=== PATIENT | male | born 1955 | race Caucasian/White ===

== ENCOUNTER → 2017-05-14 | Day surgery (SDC) | payer BC, OTHER ==
[2017-05-13 15:24] VITALS: BP 145/85
--- NOTE | 2017-05-13 15:45 | PCM.EKG ---
[facility] Test Date: 2017-05-13 Test Time: 15:39:20 Pat Name: KACEY PARRISH Department: Room: Gender: M Paint Prepper: AWCHAMP : 1955 Requested By: GORDON MONTES Order Number: [id number] Reading MD: Juan Diego Man Measurements Intervals [place] Rate: 81 P: 73 TN: 170 QRS: 51 QRSD: 86 T: 62 QT: 392 QTc: 455 Interpretive Statements Normal sinus rhythm Normal ECG No previous ECG available for comparison NONSPECIFIC T ABNORMALITIES, DIFFUSE LEADS Electronically Signed On 05-17-2017 10:38:01 [employer] by Juan Diego Man Please click the below link to view image of tracing.
[2017-05-13 16:21] LABS: BASOPHIL # 0.1 10^3/uL (0.0-0.1); BASOPHIL % 0.8 % (0.0-0.2); EOSINOPHIL # 0.2 10^3/uL (0.0-0.2); EOSINOPHIL % 2.7 % (0.0-5.0); HEMOGLOBIN 12.3 g/dL (13.9-16.3); LYMPHOCYTES # 1.6 10^3/uL (1.0-4.8); LYMPHOCYTES % 20.6 % (24.0-44.0); MEAN CELL HGB 24.6 pg (26-34); MEAN CELL HGB CONCENTRATION 31.2 g/dL (33-37); MEAN CORP VOLUME 78.8 fL (78-100); MEAN PLATELET VOLUME 10.3 fL (7.8-11.0); MONOCYTES # 0.7 10^3/uL (0.3-0.8); MONOCYTES % 9.6 % (5.0-12.0); NEUTROPHILS % 65.5 % (41.0-85.0); WHITE BLOOD CELL 7.7 10^3/uL (4.5-11.0)
[2017-05-13 16:40] LABS: CALCIUM 8.8 mg/dL (8.4-10.5); CARBON DIOXIDE 29.8 mmol/L (20.0-32)
[~2017-05-14] VITALS: Ht 193 cm; Wt 101.2 kg
[2017-05-14] VITALS (15 sets, daily range): BP systolic 113–157; BP diastolic 68–98
[~2017-05-14] MED LIST: ACET-687 PO; ANCEF 2 GM in NS 100ML 100 ML IV SCH; ANCEF ONE; ASPI81TA52 PO; CEPH-350 PO; DECADRON ONE; DILAUDID IV PRN; DILAUDID ONE; DIPRIVAN IV ONE; LACTATED RINGERS 1,000 ML IV SCH; LACTATED RINGERS 1,000 ML ONE; LIDOCAINE 2% VIAL ONE; LOSA1TAB25 PO; NAROPIN 0.2% 40 MG/20 ML VIAL ONE; NEOSTIGMINE ONE; NS 1000ML 1,000 ML ONE; NS 100ML 100 ML IV ONE; NS 3000ML IRR IR ONE; PHENERGAN IV PRN; POTA10TA10 PO; QUELICIN ONE; SODIUM CHLORIDE IR ONE; SUBLIMAZE IV PRN; SUBLIMAZE ONE; TORADOL ONE; VERSED ONE; XYLOCAINE 2%-EPI 1:100,000 ONE; ZEMURON IV ONE; ZOFRAN ONE
[2017-05-14] MEDS: NS 1000ML 1,000 ML IV SCH ×2 (08:15→10:57)
--- NOTE | 2017-05-14 12:56 | OPH ---
DATE OF SURGERY: 05/14/2017 PREOPERATIVE DIAGNOSIS: Rotator cuff tear of the right shoulder. POSTOPERATIVE DIAGNOSIS: Rotator cuff tear of the right shoulder. OPERATIVE PROCEDURE: 1. Arthroscopy of the right shoulder with acromioplasty. 2. Through a separate incision, an open rotator cuff repair of the right shoulder. SURGEON: Jordan Noyola MD ANESTHESIA: General endotracheal BLOOD LOSS: 100 mL DRAINS: None. 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 He fell and was unable to move the shoulder. Prior to that, he had no previous problems with the shoulder. The patient continued to have severe pain as well as weakness and limited range of motion. The patient's x-rays were negative for any arthritic changes or fractures. The MRI scan showed that he had a large rotator cuff tear about the supraspinatus and infraspinatus tendons. He was taken to the operating room for an arthroscopy with rotator cuff repair. The patient was placed on the operating table in the supine position. A general endotracheal anesthetic was induced without difficulty. The patient was then placed in the beachchair position. The arthroscope was introduced posteriorly. The glenohumeral joint was viewed, he had no arthritic changes. The biceps tendon was intact. He had no labral tears. From the articular side, he was noted to have U-shaped tear of the anterior portion of the supraspinatus and a small portion of the infraspinatus tendon. The arthroscope was then placed in the subacromial space. Extensive bursectomy was performed. The patient then had acromioplasty performed with an oval bur. The patient's rotator cuff tear was viewed from the bursal side. The patient then had the arthroscopic equipment removed from the shoulder. An anterolateral incision was made about the tip of the acromion. The incision was taken through the skin and the subcutaneous tissues. Full thickness flaps were developed. The deltoid was taken off of the anterolateral tip of the acromion with cautery. The patient then had any bursal tissue that was remaining resected with a rongeur. The main portion of the tendon was retracted posteriorly. A #2 Ethibond suture was used to tag the rotator cuff edge and then we used a [place] elevator to free up the tendon on the dorsal as well as ventral surfaces. We were able to advance the tendon easily back down to the rotator cuff footprint. The patient then had two Arthrex suture anchors that were loaded with a #2 FiberWire and placed into the rotator cuff footprint at the junction of the footprint and the articular surface. The rotator cuff footprint had been freshened up with a rongeur as well as a curette. Sutures were then placed through the tendon. We used two PushLock suture anchors to secure the tendon in a double bundle fashion. The other sutures were then tied directly over the tendon to reinforce the repair. The patient had good range of motion about the shoulder with no tension on the suture line with the arm to the side. The wounds were then copiously irrigated. We used #2 Ethibond suture in an interrupted [id number] manner to repair the deltoid back to the acromion. The patient then had the deltoid split closed with 0 Vicryl in a running manner, the subQ was closed with a 2-0 barbed Monocryl in a subcuticular manner, and the wound was then closed with skin glue. The 2 portal tracts were closed with 3-0 Ethilon in an interrupted manner. The patient had the wound covered with an Aquacel dressing once the glue had dried. The patient then had his arm placed in a shoulder immobilizer. He was extubated in the operating room and sent to recovery in a stable condition. Jordan Noyola MD DR: KAMRYN/viv JOB# [id number]
== END | disposition home or self-care (01) | DRG 563 ==
LOC: SDC 03:52
PROVIDERS: ATTEND Orthopaedic Surgery
DX: S46.011A Strain of muscle(s) and tendon(s) of the rotator cuff of right shoulder, initial encounter (principal); E66.3 Overweight; Z68.27 Body mass index [BMI] 27.0-27.9, adult; W19.XXXA Unspecified fall, initial encounter; Y93.89 Activity, other specified; Y92.89 Other specified places as the place of occurrence of the external cause; Y99.8 Other external cause status
CPT/HCPCS: 23412; 29822; 29826; 36415; 80048; 85025; 93005; A4649 ×10; A6197; C1713; J0330; J0690; J1100; J1170; J1885; J2001; J2250; J2405; J2795; J3010; J3490 ×2; J7030 ×3; J7050 ×2; J7120; J2710

== ENCOUNTER → 2021-05-15 | Outpatient (CLI) | payer MEDICARE, OTHER ==
[~2021-05-15] MED LIST changes: -ANCEF 2 GM in NS 100ML 100 ML IV SCH; -ANCEF ONE; -DECADRON ONE; -DILAUDID IV PRN; -DILAUDID ONE; -DIPRIVAN IV ONE; -LACTATED RINGERS 1,000 ML IV SCH; -LACTATED RINGERS 1,000 ML ONE; -LIDOCAINE 2% VIAL ONE; -NAROPIN 0.2% 40 MG/20 ML VIAL ONE; -NEOSTIGMINE ONE; -NS 1000ML 1,000 ML ONE; -NS 100ML 100 ML IV ONE; -NS 3000ML IRR IR ONE; -PHENERGAN IV PRN; -QUELICIN ONE; -SODIUM CHLORIDE IR ONE; -SUBLIMAZE IV PRN; -SUBLIMAZE ONE; -TORADOL ONE; -VERSED ONE; -XYLOCAINE 2%-EPI 1:100,000 ONE; -ZEMURON IV ONE; -ZOFRAN ONE
== END | disposition home or self-care (01) ==
LOC: LAB 08:34
PROVIDERS: ATTEND Internal Medicine Interventional Cardiology
DX: Z12.5 Encounter for screening for malignant neoplasm of prostate (principal); E78.5 Hyperlipidemia, unspecified
CPT/HCPCS: 36415; 80061; G0103; 84153